=== PATIENT | female | born 1970 | race African-American/Black ===

== ENCOUNTER 2017-05-13 07:42 | Emergency (ER) | payer OTHER ==
[~2017-05-13] VITALS: Ht 160 cm; Wt 70.2 kg
[~2017-05-13 07:42] MED LIST: CETI10 PO; LOVA1TAB47 PO
[2017-05-13 07:43] VITALS: BP 156/76; PULSE 85; RESP 16; TEMP 97.7; O2SAT 99
[2017-05-13] MEDS ORDERED: traMADol HCL 50 MG TAB PO ONE (08:30)
[2017-05-13] MEDS ORDERED: SODIUM CHLORIDE 0.9% FLUSH 10 ML FLUSH IV FLUSH PRN (08:30)
[2017-05-13 08:42] LABS: AUTOMATED NEUTROPHIL # 2.8 TH/MM3 (1.8-7.7); BASOPHIL % 0.5 % (0.0-2.0); EOSINOPHIL # 0.1 TH/MM3 (0-0.4); EOSINOPHIL % 1.8 % (0.0-4.0); HEMATOCRIT 38.9 % (35.0-46.0); HEMOGLOBIN 12.8 GM/DL (11.6-15.3); LYMPH % 42.4 % (9.0-44.0); LYMPHOCYTE # 2.6 TH/MM3 (1.0-4.8); MEAN CELL VOLUME 82.1 FL (80.0-100.0); MEAN CORPUSCULAR HEMOGLOBIN 27.1 PG (27.0-34.0); MEAN PLATELET VOLUME 8.4 FL (7.0-11.0); MONO % 8.6 % (0.0-8.0); MONOCYTE # 0.5 TH/MM3 (0-0.9); NEUT % 46.7 % (16.0-70.0); PLATELET COUNT 248 TH/MM3 (150-450); RED BLOOD COUNT 4.74 MIL/MM3 (4.00-5.30); RED CELL DISTRIBUTION WIDTH 13.7 % (11.6-17.2); WHITE BLOOD COUNT 6.1 TH/MM3 (4.0-11.0)
--- NOTE | 2017-05-13 08:42 | PD ---
HPI Chief Complaint: Abdominal Pain Time Seen by Provider: 08:07 Travel History International Travel<30 days: No Contact w/Intl Traveler<30days: No Traveled to known affect area: No History of Present Illness HPI This is a 46-year-old female who presents to the emergency department with lower abdominal cramping that's been going on for 1 week, constant, moderate severity, worse with movement, improved with rest. She denies any associated fevers, chills, dysuria, diarrhea or vomiting. She does say she's had some urinary urgency and frequency. She has had some vaginal odor but no discharge. She's had one sexual partner in the past 6 months. She does have a history 5 years ago gastric bypass but has been doing well since then with no complications. She did go to an urgent care earlier this week and they told her they thought she had musculoskeletal pain. They did a urinalysis which was normal. PFSH Past Medical History Cancer: No Cardiovascular Problems: No Diabetes: No Diminished Hearing: No Endocrine: No Genitourinary: No Hepatitis: No Hiatal Hernia: No Immune Disorder: No Musculoskeletal: No Neurologic: No Psychiatric: No Reproductive: Yes (fibroids) Respiratory: No Immunizations Current: No Thyroid Disease: No Tetanus Vaccination: Unknown Influenza Vaccination: No ?: Not LMP: 06/2016 Tubal Ligation: Yes Past Surgical History Abdominal Surgery: Yes (gastric sleeve) Body Medical Devices: permanant retainers upper and lower Eye Surgery: Yes (lasik ) Gynecologic Surgery: Yes (tubal) Joint Replacement: No Pacemaker: No Social History Alcohol Use: Yes (OCCASIONALLY) Tobacco Use: No Substance Use: No Allergies-Medications (Allergen,Severity, Reaction): Coded Allergies: NSAIDS (Non-Steroidal Anti-Inflamma (Verified Allergy, Unknown, gastric irritation , 05/13/17) Reported Meds & Prescriptions Reported Meds & Active Scripts Active Reported Zyrtec 10 Mg Tab (Cetirizine HCl) 10 Mg Tab 10 Mg PO DAILY Lovastatin 20 Mg Tab 20 Mg PO HS Review of Systems Except as stated in HPI: all other systems reviewed are Neg Physical Exam Narrative GENERAL:Well appearing, no acute distress SKIN: Focused skin assessment warm and dry. HEAD: Atraumatic. Normocephalic. EYES: Pupils equal and round. No injection or drainage. ENT: Moist mucous membranes NECK: Trachea midline. CARDIOVASCULAR: Regular rate and rhythm. No murmur appreciated. RESPIRATORY: Clear to auscultation. Breath sounds equal bilaterally. GASTROINTESTINAL: Abdomen soft, tender to palpation in the suprapubic region with no rebound or guarding. METAL TESTER: nodular uterus, normal appearing cervix with scant white discharge, no cervical motion or adnexal tenderness. MUSCULOSKELETAL: No obvious deformities. NEUROLOGICAL: Awake and alert. No obvious cranial nerve deficits. Moving all extremities. PSYCHIATRIC: Appropriate mood and affect; insight and judgment normal. Data Data Last Documented VS Vital Signs Date Time Temp Pulse Resp B/P (MAP) Pulse Ox O2 Delivery O2 Flow Rate FiO2 05/13/17 07:43 97.7 85 16 156/76 (102) 99 Orders Orders Complete Blood Count With Diff (05/13/17 08:26) Comprehensive Metabolic Panel (05/13/17 08:26) Lipase (05/13/17 08:26) Urinalysis - C+S If Indicated (05/13/17 08:26) Iv Access Insert/Monitor (05/13/17 08:26) Ecg Monitoring (05/13/17 08:26) Oximetry (05/13/17 08:26) Sodium Chloride 0.9% Flush (Ns Flush) (05/13/17 08:30) Tramadol (Ultram) (05/13/17 08:30) Wet Prep Profile (05/13/17 08:26) Gc And Chlamydia Pcr (05/13/17 08:26) Ct Abd/Pel W Iv Contrast(Rout) (05/13/17 ) Iohexol 350 Inj (Omnipaque 350 Inj) (05/13/17 09:30) Labs Laboratory Tests Test 05/13/17 08:05 05/13/17 08:10 05/13/17 09:08 White Blood Count 6.1 TH/MM3 Red Blood Count 4.74 MIL/MM3 Hemoglobin 12.8 GM/DL Hematocrit 38.9 % Mean Corpuscular Volume 82.1 FL Mean Corpuscular Hemoglobin 27.1 PG Mean Corpuscular Hemoglobin Concent 33.0 % Red Cell Distribution Width 13.7 % Platelet Count 248 TH/MM3 Mean Platelet Volume 8.4 FL Neutrophils (%) (Auto) 46.7 % Lymphocytes (%) (Auto) 42.4 % Monocytes (%) (Auto) 8.6 % Eosinophils (%) (Auto) 1.8 % Basophils (%) (Auto) 0.5 % Neutrophils # (Auto) 2.8 TH/MM3 Lymphocytes # (Auto) 2.6 TH/MM3 Monocytes # (Auto) 0.5 TH/MM3 Eosinophils # (Auto) 0.1 TH/MM3 Basophils # (Auto) 0.0 TH/MM3 CBC Comment DIFF FINAL Differential Comment Blood Urea Nitrogen 14 MG/DL Creatinine 0.80 MG/DL Random Glucose 80 MG/DL Total Protein 8.0 GM/DL Albumin 3.6 GM/DL Calcium Level 9.5 MG/DL Alkaline Phosphatase 99 U/L Aspartate Amino Transf (AST/SGOT) 29 U/L Alanine Aminotransferase (ALT/SGPT) 22 U/L Total Bilirubin 0.6 MG/DL Sodium Level 139 MEQ/L Potassium Level 4.5 MEQ/L Chloride Level 107 MEQ/L Carbon Dioxide Level 25.3 MEQ/L Anion Gap 7 MEQ/L Estimat Glomerular Filtration Rate 94 ML/MIN Lipase 201 U/L Urine Color YELLOW Urine Turbidity CLEAR Urine pH 6.5 Urine Specific [place] 1.016 Urine Protein NEG mg/dL Urine Glucose (UA) NEG mg/dL Urine Ketones NEG mg/dL Urine Occult Blood NEG Urine Nitrite NEG Urine Bilirubin NEG Urine Urobilinogen LESS THAN 2.0 MG/DL Urine Leukocyte Esterase MOD Urine RBC 1 /hpf Urine WBC 1 /hpf Urine Squamous Epithelial Cells 4 /hpf Urine Mucus FEW /lpf Microscopic Urinalysis Comment CULT NOT INDICATED Clue Cells (Wet Prep) NONE SEEN Vaginal Trichomonas (Wet Prep) NONE SEEN Vaginal Yeast (Wet Prep) NONE SEEN MDM Medical Decision Making Medical Screen Exam Complete: Yes Emergency Medical Condition: Yes Interpretation(s) No leukocytosis Electrolytes are reassuring Urinalysis is negative for infection Wet prep is negative Last 24 hours Impressions Abdomen/Pelvis CT 05/13/17 0000 Signed Impressions: Service Date/Time: Saturday, May 13, 2017 09:28 - CONCLUSION: 1. Enlarged fibroid uterus. 2. Uncomplicated sigmoid diverticulosis. 3. 12 mm upper pole right renal cyst. 4. 7 mm low-density lesion within the right hepatic lobe consistent with probable cyst or benign solid lesion. 5. Degenerative changes and scoliosis of the lumbar spine. Braulio Shea MD Differential Diagnosis Urinary tract infection, pelvic inflammatory disease, colitis, appendicitis, ovarian cyst, fibroid uterus Narrative Course This is a 46-year-old female who presents to the emergency department with lower abdominal discomfort that's been going on for 1 week. She is placed in a monitor and an IV was established. Labs are obtained which are reassuring with no leukocytosis or electrolyte abnormalities. Urinalysis was negative for infection. Pelvic exam was benign except for some nodularity of the uterus. CT abdomen and pelvis demonstrates no acute pathology but does demonstrate a fibroid uterus which may be the etiology of her symptoms. Patient was written for a short course of tramadol as she can't take anti-inflammatories due to prior gastric bypass and she was urged to follow-up with a mill tender warm up. Diagnosis Primary Impression: Fibroid uterus Qualified Codes: D25.9 - Leiomyoma of uterus, unspecified Referrals: Elvi Dawn MD Patient Instructions: General Instructions Additional Instructions: If you develop severe or worsening abdominal pain, fever>100.4, persistent vomiting or inability to eat or drink return to the emergency department immediately. Follow-up with a mill tender warm up as soon as possible. Med/Other Pt SpecificInfo: Prescription(s) given Scripts Tramadol (Tramadol) 50 Mg Tab 50 MG PO Q6H Y for PAIN, #10 TAB 0 Refills Prov: Chloé Pruitt MD 05/13/17 Disposition: 01 DISCHARGE HOME Condition: Stable Chloé Pruitt MD May 13, 2017 08:42
[2017-05-13 08:45] LABS: BILIRUBIN, URINE NEG (NEG); BLOOD, URINE NEG (NEG); GLUCOSE,URINE NEG (NEG); KETONE, URINE NEG (NEG); MUCUS URINE FEW /lpf (OCC); NITRITE,URINE NEG (NEG); PH, URINE 6.5 (5.0-8.5); SQUAMOUS EPITHELIAL CELL URINE 4 /hpf (0-5); URINE COLOR YELLOW (YELLW/STRAW); URINE LEUKOCYTE ESTERASE MOD (NEG)
[2017-05-13 09:07] LABS: ALT (GPT) 22 U/L (10-53)
[2017-05-13 09:10] LABS: ALKALINE PHOSPHATASE 99 U/L (45-117); TOTAL BILIRUBIN ADULT 0.6 MG/DL (0.2-1.0)
[2017-05-13 09:13] LABS: ALBUMIN 3.6 GM/DL (3.4-5.0); AST (GOT) 29 U/L (15-37); BICARBONATE 25.3 MEQ/L (21.0-32.0); BLOOD UREA NITROGEN 14 MG/DL (7-18); CALCIUM 9.5 MG/DL (8.5-10.1); CHLORIDE 107 MEQ/L (98-107); GLOMERULAR FILTRATION RATE 94 ML/MIN (>89); GLUCOSE,RANDOM 80 MG/DL (74-106); LIPASE 201 U/L (73-393); SODIUM (NA) 139 MEQ/L (136-145)
[2017-05-13] MEDS ORDERED: IOHEXOL 350 MG/ML 10 ML VIAL (for RAD DIAG) IVCONTRAST ONE (09:30)
--- NOTE | 2017-05-13 10:09 | RADRPT ---
EXAM DATE/TIME: 05/13/2017 09:28 [facility] COMPARISON: No previous studies available for comparison. INDICATIONS : Lower abdominal and back pain, nausea. IV CONTRAST: 96 cc Omnipaque 350 (iohexol) IV ORAL CONTRAST: No oral contrast ingested. RADIATION DOSE: 6.64 CTDIvol (mGy) MEDICAL HISTORY : Uterine fibroids. SURGICAL HISTORY : Gastric bypass. Tubal ligation. ENCOUNTER: Initial ACUITY: 1 week PAIN SCALE: 5/10 LOCATION: Bilateral lower quadrant TECHNIQUE: Volumetric scanning of the abdomen and pelvis was performed. Using automated exposure control and ad justment of the mA and/or kV according to patient size, radiation dose was kept as low as reasonably achievable to obtain optimal diagnostic quality images. DICOM format image data is available electro nically for review and comparison. FINDINGS: LOWER LUNGS: The visualized lower lungs are clear. LIVER: There is a 7 mm low-density lesion within the right lobe of the liver which likely represents a tiny cyst or benign solid lesion. There is no dilation of the biliary tree. No calcified gallstones. SPLEEN: Normal size without lesion. PANCREAS: Within normal limits. KIDNEYS: Normal in size and shape. There is no mass, stone or hydronephrosis. There is a 12 mm cyst within th e upper pole the right kidney. ADRENAL GLANDS: Within normal limits. VASCULAR: There is no aortic aneurysm. BOWEL/MESENTERY: Gastric sleeve surgery has been performed. Few uncomplicated sigmoid diverticula are noted. No acute diverticulitis is noted. No bowel obstruction or ileus is noted. The appendix is normal. ABDOMINAL WALL: Within normal limits. RETROPERITONEUM: There is no lymphadenopathy. BLADDER: No wall thickening or mass. REPRODUCTIVE: There is an enlarged fibroid uterus. INGUINAL: There is no lymphadenopathy or hernia. MUSCULOSKELETAL: Mild scoliosis and degenerative changes of the lumbar spine are noted. CONCLUSION: 1. Enlarged fibroid uterus. 2. Uncomplicated sigmoid diverticulosis. 3. 12 mm upper pole right renal cyst. 4. 7 mm low-density lesion within the right hepatic lobe consistent with probable cyst or benign kait d lesion. 5. Degenerative changes and scoliosis of the lumbar spine. Braulio Shea MD on May 13, 2017 at 10:00 Board Certified Radiologist. This report was verified electronically.
[2017-05-13] MEDS ORDERED: TRAM50TA PO (10:22)
[2017-05-13 10:39] VITALS: BP 123/72
== END 2017-05-13 10:40 | disposition home or self-care (01) ==
LOC: NEPC 07:42
DX: D25.9 Leiomyoma of uterus, unspecified (principal); K57.30 Diverticulosis of large intestine without perforation or abscess without bleeding; Q61.01 Congenital single renal cyst; R39.15 Urgency of urination; R35.0 Frequency of micturition; M41.9 Scoliosis, unspecified; Z79.899 Other long term (current) drug therapy; Z88.6 Allergy status to analgesic agent
CPT/HCPCS: 74177; 80053; 81001; 83690; 85025; 87210; 87491; 87591; 99285; Q9967